=== PATIENT | female | born 1955 | race Caucasian/White ===

== ENCOUNTER → 2021-04-16 12:22 | Outpatient (CLI) | payer MEDICARE, BC, SELFPAY ==
--- NOTE | 2021-04-16 | PATH_ITS ---
Note [facility] Accession Number: [id number] TESTS RESULT FLAG UNITS REF RANGE LAB Clinician Provided Cytology Information No. of containers..01 Other (Miscellaneous) No. of containers..02 Previously Prepared Cytology Slide Source: RIGHT THYROID SUPERIOR NODULE DIAGNOSIS: RIGHT THYROID SUPERIOR NODULE NEGATIVE FOR MALIGNANT CELLS. [place] CATEGORY II. SPECIMEN CONSISTS OF BENIGN FOLLICULAR CELLS, HEMOSIDERIN-LADEN MACROPHAGES, AND COLLOID. 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 Pathologist ICD10: 01 E04.1 Clinical history: 01 1. Superior right measuring 2.0 x 2.0 x cm, mixed solid and cystic, hyperechoic, wider than tall, punctate calcifications (TR 5) 3. Superior left 3,1 x 22 x 3.8 cm, solid, heterogeneous hyperechoic wider than tall, smooth margins and coarse calcifications (TR 4) Signed out by: Julia Niño MD, Pathologist NPI- [id number] Performed by: Miguel Cruz, Joiner Helper ([facility]) Gross description: 01 30 CC, RED, CLEAR RECIEVED: IN CYTOLYT WITH 6 ALCOHOL FIXED AND 6 QUICK STAINED SLIDES ALSO 1 RNA VIAL WAS RECEIVED FOR FURTHER TESTING. /VDU 04/19/2021 [facility] Local FLAG LEGEND: L-Low Normal,H-High Normal,LL-Alert Low,HH-Alert High <-Panic Low,>-Panic High,A-Abnormal,AA-Critical Abnormal Performed at: 01 =[facility] [address] [place] [address], [place] [id number] Wilfredo Hills MD, Performed at: 01 [facility] Cyt[facility] [address] [place] [address], [place], [place] [id number] MD Wilfredo Hills MD Phone: [phone]
--- NOTE | 2021-04-16 | PATH_ITS ---
Note [facility] Accession Number: [id number] TESTS RESULT FLAG UNITS REF RANGE LAB Clinician Provided Cytology Information No. of containers..01 Other (Miscellaneous) No. of containers..02 Previously Prepared Cytology Slide Source: LEFT THYROID SUPERIOR NODULE DIAGNOSIS: LEFT THYROID SUPERIOR NODULE NEGATIVE FOR MALIGNANT CELLS.ADEQUATE FOR EVALUATION. SPECIMEN CONSISTS OF FOLLICULAR CELLS IN MACROFOLLICLES AND SCANT COLLOID. FAVOR ADENOMATOID HYPERPLASTIC NODULE (BETHESDA CATEGORY II), SEE COMMENT. COMMENT: Microscopic examination reveals a moderately cellular aspirate with a predominantly macro-follicular pattern of arrangement of follicular cells. Scant colloid is present. The follicular epithelial cells have minimal cytologic atypia with mild overlapping. Features of papillary thyroid carcinoma are not identified. 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 Close clinical follow-up and repeat FNA should be considered if there is significant growth or to address new sonographic abnormalities. Selected slides have been seen in intradepartmental review by Dr.Julie Fong prior to verification. Pathologist ICD10: 01 R89.6, E04.1 Clinical history: 1. Superior right measuring 2.0 x 2.0 x cm, mixed solid and cystic, hyperechoic, wider than tall, punctate calcifications (TR 5) 3. Superior left 3,1 x 22 x 3.8 cm, solid, heterogeneous hyperechoic wider than tall, smooth margins and coarse calcifications (TR 4) Signed out by: Carley Scott MD, Pathologist NPI- [id number] Performed by: Jay Carrasquillo, Digital Traffic Coordinator ([facility]) Gross description: 30 CC, PINK, CLEAR RECIEVED: IN CYTOLYT WITH 6 ALCOHOL FIXED AND 6 QUICK STAINED SLIDES ALSO 1 RNA VIAL WAS RECEIVED FOR FURTHER TESTING. /VDU 04/19/2021 0800 Local FLAG LEGEND: L-Low Normal,H-High Normal,LL-Alert Low,HH-Alert High <-Panic Low,>-Panic High,A-Abnormal,AA-Critical Abnormal Performed at: 01 =Z [facility] [address] [place] [address] [address] [facility], [place] [address] Wilfredo Hills MD, Performed at: 01 [facility] Cytology [address] [place] [address], [place], [place] [id number] MD Wilfredo Hills MD Phone: [phone]
--- NOTE | 2021-04-16 | DI.US.S_ITS ---
PROCEDURE: 1. Ultrasound-guided fine-needle aspiration of left superior thyroid nodule. 2. Ultrasound-guided fine-needle aspiration of right superior thyroid nodule. INDICATIONS: BILATERAL THYROID NODULES TECHNIQUE: The indications, alternatives, benefits, risks, and complications of the procedure were explained to the patient. Written informed consent was obtained and placed in the chart. The thyroid region was examined sonographically and a site was chosen for ultrasound guided percutaneous sampling. The skin was prepared and draped in the usual fashion, and anesthetized with 1% lidocaine infiltrated from the skin down to the thyroid gland. Multiple passes were then performed, with contents emptied into an appropriate pathology specimen container. A bandage was applied to the area of access at completion of the study. COMPARISON: Outside Facility, , US SOFT TISSUE HEAD OR NECK, 01/08/2021, 13:52. FINDINGS: Location(s) of lesion(s) sampled: Left superior thyroid nodule and right superior thyroid nodule. Donovan: 25 gauge hypodermic needles. Number of passes: 6 passes for each nodule Medications: 1% lidocaine for local anaesthesia. Complications: None. IMPRESSION: Successful ultrasound-guided thyroid nodule fine needle aspiration, with cytology results pending. Please see chart below for management recommendations based on cytology results. [facility] ReportingRecommendationsNon-diagnostic* Repeat US-guided FNA, with on-site cytology evaluation if possible. * Repeated non-diagnostic nodules without high suspicion US features: close observation vs surgical consult. * Consider surgery if nodule has high suspicion US features, grows >20% in 2 dimensions on followup, or patient has clinical risk factors for malignancy. Benign* If nodule has high suspicion US features: repeat US and FNA within 12 months. * If nodule has low to intermediate suspicion US features: repeat US at 12-24 months. If nodule grows (20% increase in at least 2 dimensions, with minimal increase of 2 mm or >50% change in volume), or development of new suspicious US features, then repeat FNA or continue followup. * If nodule has very low suspicion US features: followup US at >24 months. Atypia of undetermined significance, follicular lesion of undetermined significanceRepeat FNA, molecular testing, followup US, or surgical consult.Follicular neoplasm, suspicious for follicular neoplasmSurgical consult; also consider molecular testing. Suspicious for malignancySurgical consult.MalignantSurgical consult. Dictated by: Alessandro Funk M.D. on 04/16/2021 at 14:20 Approved by: Alessandro Funk M.D. on 04/16/2021 at 14:21
== END ==
PROVIDERS: PCP Specialist; Referring Provider Student in an Organized Health Care Education/Training Program; Visit Provider Student in an Organized Health Care Education/Training Program
DX: E04.2 Nontoxic multinodular goiter (principal)
CPT/HCPCS: 10005; 10006